=== PATIENT | female | born 2000 | race Caucasian/White ===

== ENCOUNTER 2018-08-25 12:30 | Emergency (ER) | payer OTHER ==
[2018-08-25] MEDS ORDERED: SODIUM CHLORIDE 0.9% 1,000 ML IV STA ×3 (12:33→13:24)
[2018-08-25] MEDS ORDERED: ACETAMINOPHEN IV (For NPO) 1,000 MG in EMPTY BAG 1 BAG IVPB STA (12:33)
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
[2018-08-25 12:54] LABS: Glucose,Whole Blood 99 mg/dL (75-99)
[2018-08-25 12:57] LABS: Basophils # (A) 0.1 k/uL (0-0.2); Basophils % (A) 1 %; Eosinophils # (A) 0.3 k/uL (0-0.7); Eosinophils % (A) 2 %; HCT 44.3 % (34.0-46.0); HGB 14.3 gm/dL (11.4-16.0); Lymphocytes # (A) 2.7 k/uL (1.0-4.8); Lymphocytes % (A) 22 %; MCH 27.1 pg (25.0-35.0); MCHC 32.2 g/dL (31.0-37.0); MCV 84.1 fL (80.0-100.0); Mean Platelet Volume 5.7; Monocytes # (A) 0.3 k/uL (0-1.0); Monocytes % (A) 2 %; Neutrophils # (A) 8.5 k/uL (1.3-7.7); Neutrophils % (A) 71 %; Platelet Count 423 k/uL (150-450); RBC 5.27 m/uL (3.80-5.40)
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
[2018-08-25 13:05] LABS: Prothrombin Time 10.3 sec (9.0-12.0)
[2018-08-25 13:07] LABS: ALT 26 U/L (9-52); AST 21 U/L (14-36); Albumin 4.3 g/dL (3.5-5.0); Alkaline Phosphatase 76 U/L (38-126); Amylase 61 U/L (30-110); Anion Gap 10 mmol/L; Blood Urea Nitrogen 5 mg/dL (7-17); Calcium 9.7 mg/dL (8.4-10.2); Carbon Dioxide 24 mmol/L (22-30); Chloride 109 mmol/L (98-107); Glucose 96 mg/dL (74-99); Lipase 117 U/L (23-300); Potassium 3.5 mmol/L (3.5-5.1); Sodium 143 mmol/L (137-145); Total Bilirubin 0.5 mg/dL (0.2-1.3); Total Protein 7.3 g/dL (6.3-8.2)
[2018-08-25 13:13] LABS: Alcohol 98 mg/dL
[2018-08-25 13:14] LABS: Creatine Kinase 141 U/L (30-135)
[2018-08-25] MEDS ORDERED: DIPH,PERTUS(ACELL)TETVAC-LF 0.5 ML VIAL IM ONE (13:25)
[2018-08-25 13:28] LABS: Creatine Kinase MB 2.1 ng/mL (0.0-2.4); Troponin I <0.012 ng/mL (0.000-0.034)
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
[2018-08-25 13:41] VITALS: BP 112/74; PULSE 86; RESP 22; TEMP 98.4
[2018-08-25 15:04] LABS: Appearance,Urine Clear (Clear); Bacteria,Urine Rare /hpf; Bilirubin,Urine Negative (Negative); Blood,Urine Negative (Negative); Color,Urine Light Yellow; Glucose,Urine (UA) Negative (Negative); Ketones,Urine Negative (Negative); Leukocyte Esterase,Urine Negative (Negative); Nitrite,Urine Negative (Negative); Protein,Urine 1+ (Negative); RBC,Urine <1 /hpf (0-5); Specific Gravity,Urine 1.019 (1.001-1.035); Squamous Epithelial Cell,Urine 3 /hpf (0-4); Urobilinogen,Urine <2.0 mg/dL (<2.0); WBC,Urine 1 /hpf (0-5)
[2018-08-25 15:06] LABS: Amphetamine Screen,Urine Detected (NotDetected); Barbiturate Screen,Urine Not Detected (NotDetected); Benzodiazepines Screen,Urine Not Detected (NotDetected); Cocaine Screen,Urine Not Detected (NotDetected); Methadone Screen, Urine Not Detected (NotDetected); Opiate Screen,Urine Not Detected (NotDetected); Oxycodone Screen, Urine Not Detected (NotDetected); Phencyclidine Screen,Urine Not Detected (NotDetected); Tricyclic Antidepressant,Urine Not Detected (NotDetected); Urn Cannabinoid Scrn Detected (NotDetected)
== END 2018-08-25 15:40 | disposition home or self-care (01) ==
LOC: EC 12:30
DX: M54.2 Cervicalgia (principal); R51 Headache; F17.200 Nicotine dependence, unspecified, uncomplicated; Z23 Encounter for immunization; V48.5XXA Car driver injured in noncollision transport accident in traffic accident, initial encounter; Y93.89 Activity, other specified; Y92.410 Unspecified street and highway as the place of occurrence of the external cause
CPT/HCPCS: 99285; 96374; 96361 ×2; 90471; 36415; 86900; 86901; 80053; 82150; 82550; 82553; 83605; 83690; 84484; 85025; 85610; 85730; 86850; 81001; 81025; 80306; 80320; 72170; 71045; 72125; 70450; 71260; 74177; 90715; J0131; Q9967

== ENCOUNTER → 2018-10-17 | Outpatient (CLI) | payer BC, OTHER ==
--- NOTE | 2018-10-17 08:26 | USB ---
Reason for exam: clinical finding. Indicated problem(s): pain in the right breast. Physical Findings: Nurse did not find any significant physical abnormalities on exam. US Breast RT Right complete breast ultrasound includes all four quadrants, the retroareolar region and axilla. Finding demonstrates a 0.9 x 0.7 x 0.7cm oval axilla node. While this is not enlarged, it is thickened. The cortex is eccentrically thickened up to 5mm. Likely reactive/post inflammatory, 3 month follow up can reassess. No other solid or cystic lesion otherwise seen. Dense tissues in upper outer quadrant. These results were verbally communicated with the patient and result sheet given to the patient on 10/17/18. ASSESSMENT: Probably benign, BI-RAD 3 RECOMMENDATION: Ultrasound of the right breast in 6 months. (thickened axillary node) Manage on a clinical basis with regard to right breast pain.
== END | disposition home or self-care (01) ==
LOC: RADUSWWP 07:10
PROVIDERS: ATTEND Physician Assistant
DX: N64.4 Mastodynia (principal)

== ENCOUNTER 2019-04-08 23:55 | Emergency (ER) | payer BC ==
[2019-04-09] MEDS ORDERED: SULFAMETHOX-TMP 800-160MG 1 EACH TAB PO STA (00:33)
--- NOTE | 2019-04-09 00:40 | ED ---
Skin/Abscess/FB HPI - General Chief complaint: Skin/Abscess/Foreign Body Stated complaint: poss infection, rt leg Time Seen by Provider: 04/09/19 00:08 Source: patient Mode of arrival: ambulatory Limitations: no limitations - History of Present Illness Initial comments: This patient is 19-year-old woman with history of previous abscesses who presents to be evaluated for what she suspects is an abscess to the right pretibial area. The patient states that she had noticed a little redness yesterday and then today noticed that there appeared to be an area that was coming to a head. She states she did estefany into this at home and some pus did drain. Patient was concerned because she has previous history of MRSA infection with the abscesses. She denies any systemic symptoms, including no fever or chills, palpitations, chest pain, dyspnea or diaphoresis or other symptoms. MD complaint: abscess/boil Onset/Timin -: days(s) Tetanus Up to Date: yes Location: RLE Severity: mild Consistency: constant Improves with: none Worsens with: none Associated symptoms: denies other symptoms Treatments Prior to Arrival: attempted to drain pus at home - Related Data Previous Rx's Medication Instructions Recorded Sulfamethox-Tmp 800-160Mg [Bactrim 1 each PO Q12HR #14 tab 04/09/19 Ds] Allergies Allergy/AdvReac Type Severity Reaction Status Date / Time No Known Allergies Allergy Verified 08/25/18 13:39 Review of Systems ROS Statement: Those systems with pertinent positive or pertinent negative responses have been documented in the HPI. ROS Other: All systems not noted in ROS Statement are negative. Constitutional: Denies: fever, chills Respiratory: Denies: dyspnea Cardiovascular: Denies: chest pain, palpitations, edema, syncope Skin: Reports: as per HPI, other (Small pretibial abscess) Past Medical History Past Medical History: No Reported History History of Any Multi-Drug Resistant Organisms: MRSA Date of last positivie culture/infection: 2017 MDRO Source:: thigh Past Surgical History: No Surgical Hx Reported Past Psychological History: Depression Smoking Status: Current every day smoker Past Alcohol Use History: None Reported Past Drug Use History: None Reported General Exam Limitations: no limitations General appearance: alert, in no apparent distress Respiratory exam: Present: normal lung sounds bilaterally. Absent: respiratory distress, wheezes, rales, rhonchi, stridor Cardiovascular Exam: Present: regular rate, normal rhythm Skin exam: Present: warm, dry, normal color, erythema, other (Patient has an approximately 6 cm diameter area of erythema in the right pretibial area. Centrally located is small eschar where the patient had drained small amount of pus. This does appear consistent with drained abscess. There is no fluctuance.) Course Vital Signs 04/08/19 04/09/19 23:56 01:20 Temperature 98.1 F 98.0 F Pulse Rate 81 71 Respiratory 18 16 Rate Blood Pressure 124/74 104/60 O2 Sat by Pulse 100 98 Oximetry Medical Decision Making - Medical Decision Making Patient is 19-year-old woman with an abscess that she drained at home. Will place patient on Bactrim to further treat remaining cellulitis. Discussed warm compresses and appropriate further care and follow-up. Disposition Clinical Impression: Abscess Disposition: HOME SELF-CARE Condition: Good Instructions (If sedation given, give patient instructions): Abscess (ED) Prescriptions: Sulfamethox-Tmp 800-160Mg [Bactrim Ds] 1 each PO Q12HR #14 tab Is patient prescribed a controlled substance at d/c from ED?: No Referrals: Tony Toney MD [Primary Care Provider] - 1-2 days
[2019-04-09 01:20] VITALS: BP 104/60; PULSE 71; RESP 16; TEMP 98
== END 2019-04-09 01:18 | disposition home or self-care (01) ==
LOC: EC 23:55
DX: L02.415 Cutaneous abscess of right lower limb (principal); F17.200 Nicotine dependence, unspecified, uncomplicated; Z86.14 Personal history of Methicillin resistant Staphylococcus aureus infection
CPT/HCPCS: 99283

== ENCOUNTER 2019-04-11 00:04 | Emergency (ER) | payer BC ==
[2019-04-11 00:22] VITALS: BP 116/69; PULSE 75; RESP 18; TEMP 97.9
[2019-04-11] MEDS ORDERED: ONDANSETRON 4 MG ODT STARTER PACK 2 TAB BTL PO STA (00:34)
[2019-04-11] MEDS ORDERED: CEPHALEXIN 500MG STARTER PACK 4 CAP BTL PO STA (00:34)
--- NOTE | 2019-04-11 00:37 | ED ---
Skin/Abscess/FB HPI - General Chief complaint: Skin/Abscess/Foreign Body Stated complaint: Recheck R Leg Infection Time Seen by Provider: 04/11/19 00:24 Source: patient Mode of arrival: ambulatory - History of Present Illness Initial comments: 19-year-old female patient presents to the emergency department today for reevaluation of an infection to her right leg. Patient was seen and evaluated here 2 days ago and diagnosed with abscess. She was started on Bactrim. States that she has taken 5 doses of the Bactrim and today noticed increased swelling and redness to her leg. She denies fever or chills. States that she has felt general malaise and nausea today. Denies any vomiting. Patient does have history of MRSA. She denies any history of diabetes. Denies drug or alcohol use. Patient denies any recent rash, shortness breath, chest pain, abdominal pain, diarrhea, constipation, back pain, numbness, tingling, dizziness, weakness, hematuria, dysuria, urinary urgency, urinary frequency, headache, visual changes, or any other complaints. - Related Data Previous Rx's Medication Instructions Recorded Sulfamethox-Tmp 800-160Mg [Bactrim 1 each PO Q12HR #14 tab 04/09/19 Ds] Cephalexin [Keflex] 500 mg PO Q6HR #40 cap 04/11/19 L.acidoph,Paracasei, B.lactis 1 each PO BID #20 capsule 04/11/19 [Probiotic] Sulfamethoxazole/Trimethoprim 2 each PO BID #40 tablet 04/11/19 [Bactrim DS 800-160 mg] Allergies Allergy/AdvReac Type Severity Reaction Status Date / Time No Known Allergies Allergy Verified 04/11/19 00:22 Review of Systems ROS Statement: Those systems with pertinent positive or pertinent negative responses have been documented in the HPI. ROS Other: All systems not noted in ROS Statement are negative. Past Medical History Past Medical History: No Reported History History of Any Multi-Drug Resistant Organisms: MRSA Date of last positivie culture/infection: 2017 MDRO Source:: thigh Past Surgical History: No Surgical Hx Reported Past Psychological History: Depression Smoking Status: Current every day smoker Past Alcohol Use History: None Reported Past Drug Use History: None Reported General Exam General appearance: alert, in no apparent distress, other (This is a well- developed, well-nourished adult female patient in no acute distress. Vital signs upon presentation are temperature 97.9F, pulse 75, respirations 18, blood pressure 116/69, pulse ox 97% on room air.) Eye exam: Present: normal appearance, PERRL, EOMI. Absent: scleral icterus, conjunctival injection, periorbital swelling ENT exam: Present: normal exam, normal oropharynx, mucous membranes moist Respiratory exam: Present: normal lung sounds bilaterally. Absent: respiratory distress, wheezes, rales, rhonchi, stridor Cardiovascular Exam: Present: regular rate, normal rhythm, normal heart sounds. Absent: systolic murmur, diastolic murmur, rubs, gallop, clicks Extremities exam: Present: full ROM, normal capillary refill, other (Patient has abscess noted to the left mccurdy, this is indurated approximately 1.5 cm, no fluctuance. No current drainage. There is surrounding cellulitis from the knee over the medial leg to the ankle. Mild soft tissue swelling.). Absent: normal inspection, tenderness, pedal edema, joint swelling, calf tenderness Neurological exam: Present: alert, oriented X3, CN II-XII intact Psychiatric exam: Present: normal affect, normal mood Skin exam: Present: warm, dry, intact, normal color. Absent: rash Course Vital Signs 04/11/19 00:17 Temperature 97.9 F Pulse Rate 75 Respiratory 18 Rate Blood Pressure 116/69 O2 Sat by Pulse 97 Oximetry Medical Decision Making - Medical Decision Making 19-year-old female patient presented to the emergency department today for evaluation of infection to the right mccurdy. Physical examination did reveal indurated abscess with surrounding cellulitis. Patient is currently taking Bactrim, she has had 5 doses. We'll double the dose of Bactrim and add Keflex. She is afebrile, vital signs. She is not vomiting. Line was drawn on the area of cellulitis. We'll discharge with prescriptions for antibiotics and for Zofran. She is instructed follow up with her primary care physician for recheck in 1-2 days. Return parameters were discussed in detail. She verbalizes understanding and agrees with this plan. Disposition Clinical Impression: Cellulitis and abscess of right leg Disposition: HOME SELF-CARE Condition: Good Instructions (If sedation given, give patient instructions): Cellulitis (ED), Abscess (ED) Additional Instructions: Complete antibiotic prescription in full. Take probiotic. Follow-up with the primary care physician for recheck in 1-2 days. Return to the emergency depart ment immediately for any new, worsening, or concerning symptoms. Prescriptions: Sulfamethoxazole/Trimethoprim [Bactrim DS 800-160 mg] 2 each PO BID #40 tablet Cephalexin [Keflex] 500 mg PO Q6HR #40 cap L.acidoph,Paracasei, B.lactis [Probiotic] 1 each PO BID #20 capsule Is patient prescribed a controlled substance at d/c from ED?: No Referrals: Tony Toney MD [Primary Care Provider] - 1-2 days Time of Disposition: 00:37
== END 2019-04-11 00:56 | disposition home or self-care (01) ==
LOC: EC 00:04
DX: L03.115 Cellulitis of right lower limb (principal); L02.415 Cutaneous abscess of right lower limb; F17.200 Nicotine dependence, unspecified, uncomplicated; Z86.14 Personal history of Methicillin resistant Staphylococcus aureus infection
CPT/HCPCS: 99283

== ENCOUNTER → 2019-05-01 | Outpatient (CLI) | payer BC ==
--- NOTE | 2019-05-02 09:14 | USB ---
Reason for exam: follow-up at short interval from prior study. Physical Findings: Nurse did not find any significant physical abnormalities on exam. US Breast RT Right complete breast ultrasound includes all four quadrants, the retroareolar region and axilla. Finding demonstrates dense breast tissue throughout. Previously seen lymph node is no longer seen. These results were verbally communicated with the patient and result sheet given to the patient on 05/01/19. ASSESSMENT: Negative, BI-RAD 1 RECOMMENDATION: Surgical consultation of the right breast. Manage patient on a clinical basis. Surgical consultation for chronic pain. Called Dr. Toney's office with mammographic findings and has scheduled an appointment for the patient for 05/03/19 at 8:20 with Lucian Banks. PRELIMINARY REPORT CALLED AND FAXED TO DR. TONEY ON 05/02/19.
--- NOTE | 2019-05-02 09:16 | MM ---
Reason for exam: clinical finding. Baseline mammogram. Physical Findings: Nurse did not find any significant physical abnormalities on exam. [facility] Diagnostic Mammo w CAD MERLE Bilateral CC and MLO view(s) were taken. The breast tissue is heterogeneously dense. This may lower the sensitivity of mammography. Asymmetric size of the breasts with the appearance of a large approximately 12.6cm Hamartoma (breast within a breast appearance). These results were verbally communicated with the patient and result sheet given to the patient on 05/01/19. ASSESSMENT: Benign, BI-RAD 2 RECOMMENDATION: Surgical consultation of both breasts. Manage patient on a clinical basis. Surgical consultation for chronic pain. Called Dr. Toney's office with mammographic findings and has scheduled an appointment for the patient for 05/03/19 at 8:20 with Lucian Banks. PRELIMINARY REPORT CALLED AND FAXED TO DR. TONEY ON 05/02/19.
== END | disposition home or self-care (01) ==
LOC: RADMAMWWP 11:10
PROVIDERS: ATTEND Family Medicine
DX: N64.4 Mastodynia (principal)
CPT/HCPCS: 77066

== ENCOUNTER → 2019-08-16 | Outpatient (CLI) | payer BC ==
[2019-08-16 10:46] VITALS: BP 118/74; PULSE 64; RESP 14; TEMP 97.8
--- NOTE | 2019-08-16 11:17 | P.GSHP ---
History of Present Illness H&P Date: 08/16/19 Chief Complaint: lump in her right breast Amada is a 19 year old white female seen in consultation for Dr. Tony Toney who states that over the past year she noted a lump increasing in size in her right breast. She states that it is tender at the time of her period but only with pressure applied at this site. She is not complaining of any abnormal nipple discharge or skin changes. She doesn't have any history of recent trauma or infection in the breast. She states that the discomfort is like a traction pulling related to the size of the lesion. 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 The patient was followed as a child 3 years at [facility] secondary to right breast nipple discharge which was yellow/clear in nature. When she started her menstrual periods for discharge stopped. No reason for the discharge was identified. The patient has not been seen by them for 10 years. Additionally she had an ultrasound of the right breast and this was negative BIRADS 1. The patient initially had sought of recommendation in October 2018 an ultrasound of the right breast at that time revealed a 0.9 cm axillary node. The plan was for follow-up in 6 months and she had repeat ultrasound done in April 2019. No radiographic studies have been done of the left breast. Caffeine: 1 cup of coffee per day Nicotine: One pack of cigarettes per day for 7 years Chocolate: Daily no hormone suppliments Family History: father: lymphoma paternal aunt: lymphoma paternal grandfather: colon cancer maternal grandfather: pancreatic cancer Hormonal History: menarche: 12 G0 periods regular BCP: none hormones: none Surgical history: Negative Medical history: asthma MRSA in thigh and calf on the right Social History: smoke: 1/PPD alcohol: none drugs: Marijuana daily - Constitutional Constitutional: Denies chills, Denies fever - EENT Eyes: denies blurred vision, denies pain Ears: deny: decreased hearing, tinnitus Ears, nose, mouth and throat: Denies headache, Denies sore throat - Breasts Breasts: bilateral: as per HPI - Cardiovascular Cardiovascular: Denies chest pain, Denies shortness of breath - Respiratory Comment: asthma Respiratory: Denies cough, Denies 7 - Gastrointestinal Gastrointestinal: Denies abdominal pain, Denies diarrhea, Denies nausea, Denies vomiting - Menstruation Menstruation: Reports period normal - Musculoskeletal Comment: carpal tunnel Musculoskeletal: Denies myalgias - Integumentary Integumentary: Denies pruritus, Denies rash - Neurological Neurological: Reports numbness, Reports weakness - Psychiatric Psychiatric: Reports anxiety, Reports depression - Endocrine Endocrine: Denies fatigue, Denies weight change - Hematologic/Lymphatic Comment: none - Allergic/Immunologic Allergic/Immunologic: Reports as per HPI Past Medical History Past Medical History: Asthma History of Any Multi-Drug Resistant Organisms: MRSA Date of last positivie culture/infection: 2017 MDRO Source:: thigh Past Surgical History: No Surgical Hx Reported Past Anesthesia/Blood Transfusion Reactions: No Reported Reaction Past Psychological History: Depression Smoking Status: Current every day smoker Past Alcohol Use History: None Reported Additional Past Alcohol Use History / Comment(s): started smoking at the age of 12, 1ppd Past Drug Use History: None Reported Medications and Allergies Home Medications Medication Instructions Recorded Confirmed Type hydrOXYzine PAMOATE [Vistaril] 50 mg PO HS 08/16/19 08/16/19 History Allergies Allergy/AdvReac Type Severity Reaction Status Date / Time No Known Allergies Allergy Verified 08/16/19 10:41 Surgical - Exam Vital Signs Temp Pulse Resp BP Pulse Ox 97.8 F 64 14 118/74 100 08/16/19 10:43 08/16/19 10:43 08/16/19 10:43 08/16/19 10:43 08/16/19 10:43 BMI 28.7 - General well developed, well nourished, no distress - Eyes normal ocular movement - ENT no hearing loss, no congestion - Neck no masses, trachea midline - Respiratory normal respiratory effort, clear to auscultation - Cardiovascular Rhythm: regular Heart Sounds: normal: S1, S2 - Abdomen Abdomen: soft, non tender, no guarding, no rigid, no rebound - Integumentary normal turgor - Neurologic no disoriented, no combative - Musculoskeletal normal gait, normal posture - Psychiatric oriented to time, oriented to person, oriented to place, speech is normal, memory intact breast exam: BRA 38 DDD right 38 B left Inspection: Right breast considerably larger than the left breast, there is the impression of a fullness in the upper outer quadrant region, no nipple inversion Palpation: Right breast: Fullness upper-outer quadrant area this is also seen within the patient elevates her breast as a fullness separate from the breast tissue but not very discrete Right axilla: No adenopathy of concern Left breast: Multiple positional exam fibrocystic changes, node definite masses or nodules of concern Left axilla: No adenopathy of concern Results right breast mammogram and ultrasound reviewed with radiologist Assessment and Plan Assessment: Impression: 1. Mass right breast upper outer quadrant region 2. Abnormal right breast mammogram 3. Prior history of right breast nipple discharge which is stopped 4. Family history of cancer 5. Former history of asthma Plan: 1. core biopsy in the office of palpable change, if nondiagnositc stero biopsy of the right breast to confirm diagnosis of hamartoma 2. We have discussed possibility of resection as the fullness of this is causing traction on the breast and discomfort for the patient would like to get a tissue diagnosis prior to this. We have discussed the options and the patient has been given the optin of being seen at a tertiary care center/[facility]. The patient is not interested in going to [facility] or another place at this time we will proceed with workup here. encounter: 40 minutes, > 50% of time in planning and counselling Time with Patient: Greater than 30
== END ==
LOC: WWCWWP 10:33
PROVIDERS: ATTEND Surgery
DX: Z53.9 Procedure and treatment not carried out, unspecified reason (principal)

== ENCOUNTER → 2019-11-01 | Outpatient (CLI) | payer BC ==
[2019-11-01 09:31] VITALS: BP 107/71; PULSE 76; RESP 18; TEMP 98.2
--- NOTE | 2019-11-01 09:44 | P.PCN ---
Date of Procedure: 11/01/19 Preoperative Diagnosis: Fullness right breast upper outer quadrant region/probable hamartoma Postoperative Diagnosis: Same Procedure(s) Performed: Core biopsy mass right breast Anesthesia: local Surgeon: Chela Page Pathology: other (breast tissue) Condition: stable Disposition: same day Indications for Procedure: Mass right breast upper outer quadrant Operative Findings: Dense breast tissue Description of Procedure: The patient is a 19-year-old white female who has had mass which is in the upper outer quadrant of the right breast which is increased in size over the past 6 months to a year. Radiographic evaluation is consistent with a hamartoma. The patient is also complaining of some clear nipple discharge on the right side. She had this as a young child which stopped when her periods started in the just started again recently. The patient is uncertain as to whether the mass in the right breast is increased in size recently. Risks and benefits of core biopsy were discussed with the patient. She understands and wishes to proceed. She also understands if diagnosis is not made and a proceed to an ultrasound-guided core biopsy. The area of concern is prepped using Betadine. 1% lidocaine was used to anesthetize the area of concern. A small bryce is made in the skin. An 18-gauge Bard core biopsy needle was used to obtain 3 core samples. Specimens are sent to pathology. The patient tolerated the procedure in stable condition. She will follow up next week for results of the pathology.
== END | disposition home or self-care (01) ==
LOC: WWCWWP 09:07
PROVIDERS: ATTEND Surgery
DX: N63.11 Unspecified lump in the right breast, upper outer quadrant (principal)
CPT/HCPCS: 88305

== ENCOUNTER → 2019-11-08 | Outpatient (CLI) | payer BC ==
[2019-11-08 11:07] VITALS: BP 109/72; PULSE 79; RESP 16; TEMP 98.3
--- NOTE | 2019-11-08 11:35 | P.PN ---
Subjective Progress Note Date: 11/08/19 Principal diagnosis: hamartoma of the right breast Amada is a 19 year old white female seen in consultation for Dr. Tony Toney on 08-16-19, who stated that over the past year she noted a lump increasing in size in her right breast. She stated that it was tender at the time of her period but only with pressure applied at this site. She was not complaining of any abnormal nipple discharge or skin changes. She did not have any history of recent trauma or infection in the breast. She stated that the discomfort was like a traction pulling related to the size of the lesion. 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 The patient was followed as a child 3 years at [facility] secondary to right breast nipple discharge which was yellow/clear in nature. When she started her menstrual periods for discharge stopped. No reason for the discharge was identified. The patient has not been seen by them for 10 years. Additionally she had an ultrasound of the right breast and this was negative BIRADS 1. The patient initially had sought of recommendation in October 2018 an ultrasound of the right breast at that time revealed a 0.9 cm axillary node. The plan was for follow-up in 6 months and she had repeat ultrasound done in April 2019. A bilateral mammogram was performed in April 2019 revealing asymmetric size of the breast with a large 12.6 cm hamartoma in the right breast. A core biopsy of the right breast at 10:00 performed on revealed benign breast and fibroadipose tissue with focal fibrosis. She has not had a repeat right axillary ultrasound to follow an enlarged node which was seen in October 2018 done at this time. Caffeine: 1 cup of coffee per day Nicotine: One pack of cigarettes per day for 7 years Chocolate: Daily no hormone suppliments Family History: father: lymphoma paternal aunt: lymphoma paternal grandfather: colon cancer maternal grandfather: pancreatic cancer Hormonal History: menarche: 12 G0 periods regular BCP: none hormones: none Surgical history: Negative Medical history: asthma MRSA in thigh and calf on the right Social History: smoke: 1/PPD alcohol: none drugs: Marijuana daily - Constitutional Constitutional: Denies chills, Denies fever - EENT Eyes: denies blurred vision, denies pain Ears: deny: decreased hearing, tinnitus Ears, nose, mouth and throat: Denies headache, Denies sore throat - Breasts Breasts: bilateral: as per HPI - Cardiovascular Cardiovascular: Denies chest pain, Denies shortness of breath - Respiratory Comment: asthma Respiratory: Denies cough - Gastrointestinal Gastrointestinal: Denies abdominal pain, Denies diarrhea, Denies nausea, Denies vomiting - Menstruation Menstruation: Reports period normal - Musculoskeletal Comment: carpal tunnel Musculoskeletal: Denies myalgias - Integumentary Integumentary: Denies pruritus, Denies rash - Neurological Neurological: Reports numbness, Reports weakness - Psychiatric Psychiatric: Reports anxiety, Reports depression - Endocrine Endocrine: Denies fatigue, Denies weight change - Hematologic/Lymphatic Comment: none - Allergic/Immunologic Allergic/Immunologic: Reports as per HPI Past Medical History Past Medical History: Asthma History of Any Multi-Drug Resistant Organisms: MRSA Date of last positivie culture/infection: 2017 MDRO Source:: thigh Past Surgical History: No Surgical Hx Reported Past Anesthesia/Blood Transfusion Reactions: No Reported Reaction Past Psychological History: Depression Smoking Status: Current every day smoker Past Alcohol Use History: None Reported Additional Past Alcohol Use History / Comment(s): started smoking at the age of 12, 1ppd Past Drug Use History: None Reported Medications and Allergies Home Medications Medication Instructions Recorded Confirmed Type hydrOXYzine PAMOATE [Vistaril] 50 mg PO HS 08/16/19 08/16/19 History Allergies Allergy/AdvReac Type Severity Reaction Status Date / Time No Known Allergies Allergy Verified 08/16/19 10:41 Objective - Vital Signs Vital signs: Intake & Output 11/07/19 11/08/19 11/08/19 18:59 06:59 18:59 Weight 81.647 kg - Exam BMI 30.9 - Constitutional General appearance: Present: cooperative - EENT Eyes: Present: EOMI ENT: Present: hearing grossly normal - Respiratory Details: Inspiratory wheezing bilaterally Respiratory: bilateral: CTA - Cardiovascular Rhythm: regular Heart sounds: normal: S1, S2 - Gastrointestinal General gastrointestinal: Present: soft - Integumentary Integumentary Comment(s): tattoos left wrist, right rib, right arm, left thigh, right calf, right foot - Musculoskeletal Musculoskeletal: Present: gait normal - Psychiatric Psychiatric: Present: A&O x's 3, appropriate affect, intact judgment & insight - Additional findings Additional findings: Breast examination: Breast size Right breast: 38 DD Left breast: 38 B Inspection: Right breast ptosis grade 3, left breast ptosis grade 2 Palpation: Right breast: Multi-positional exam some increased fullness in the upper outer quadrant area in the region of the hematoma, the patient has a mild ecchymosis related to biopsy no dominant masses or nodules otherwise of concern Right axilla: No adenopathy of concern {: Multiple positional exam fibrocystic changes Left axilla: No adenopathy of concern Assessment and Plan Assessment: Impression: 1. Right breast probable hamartoma 2. Asymmetry of breast 3. Fibrocystic breast changes 4. Right shoulder pain 5. back pain related to right breast milvia Plan: 1. Excision of hamartoma via reduction mastopexy incision 2. Appointment with plastic surgery 3. Medical clearance Skin benefits of the procedure have been discussed with the patient. She understands that the lesion in the right breast is not felt to be a cancer or precancer, however it has increased in size and is causing the patient discomfort and concern secondary to the marked asymmetry in size of the breast. The patient would like to have the lesion which is believed to be a hamartoma removed. Reduction mammoplasty incision. This would not only remove the lesion of concern but also decrease the asymmetry between the breasts. We have discussed plastic surgical consultation and she is going to have this set up. She understands risks include but are not limited to bleeding, infection, reaction to the anesthetic. She also understands she may have decreased sensation to the nipple areolar complex and there is a risk of loss of the complex. No admission wishes to proceed. CC: Maddy Toney encounter 35 minutes, > 50% of time in planning and counseling
== END | disposition home or self-care (01) ==
LOC: WWCWWP 10:55
PROVIDERS: ATTEND Surgery
DX: Z53.9 Procedure and treatment not carried out, unspecified reason (principal)

== ENCOUNTER 2019-12-23 20:46 | Emergency (ER) | payer BC ==
[2019-12-23 21:01] VITALS: BP 134/98; PULSE 98; RESP 20; TEMP 99.1
[2019-12-24 00:04] LABS: Amphetamine Screen,Urine Not Detected (NotDetected); Barbiturate Screen,Urine Not Detected (NotDetected); Benzodiazepines Screen,Urine Not Detected (NotDetected); Cocaine Screen,Urine Not Detected (NotDetected); Methadone Screen, Urine Not Detected (NotDetected); Opiate Screen,Urine Not Detected (NotDetected); Oxycodone Screen, Urine Not Detected (NotDetected); Phencyclidine Screen,Urine Not Detected (NotDetected); Tricyclic Antidepressant,Urine Not Detected (NotDetected); Urn Cannabinoid Scrn Detected (NotDetected)
--- NOTE | 2019-12-24 00:16 | ED ---
Psych HPI - General Source: patient Mode of arrival: ambulatory <Linda Cleveland - Last Filed: 12/24/19 00:15> - General Source: RN notes reviewed, old records reviewed <Alvarado Ventura - Last Filed: 12/24/19 01:19> - General Chief Complaint: Psychiatric Symptoms Stated Complaint: Mental health Time Seen by Provider: 12/23/19 21:04 - History of Present Illness Initial Comments: 19-year-old male patient passed no history of anxiety procedure for evaluation request med reviewed. Reports that she is. Follow-up with her psychiatrist today and over the had disagreement she was unable to follow up. She denies any suicidal or homicidal ideations. Denies any acute physical complaints. Systemic: Pt denies fatigue, fever/chills, rash. Pt denies weakness, night sweats, weight loss. Neuro: Pt denies headache, visual disturbances, syncope or pre-syncope. HEENT: Pt denies ocular discharge or irritation, otalgia, rhinorrhea, pharyngitis or notable lymphadenopathy. Cardiopulmonary: Pt denies chest pain, SOB, heart palpitations, dyspnea on exertion. Abdominal/GI: Pt denies abdominal pain, n/v/d. : Pt denies dysuria, burning w/ urination, frequency/urgency. Denies new onset urinary or bowel incontinence. MSK: Pt denies myalgia, loss of strength or function in extremities. Neuro: Pt denies new onset weakness, paresthesias. (Alvarado Ventura) - Related Data Home Medications Medication Instructions Recorded Confirmed hydrOXYzine PAMOATE [Vistaril] 100 mg PO HS 12/23/19 12/23/19 Allergies Allergy/AdvReac Type Severity Reaction Status Date / Time No Known Allergies Allergy Verified 12/23/19 22:04 Review of Systems ROS Other: All systems not noted in ROS Statement are negative. <Linda Cleveland - Last Filed: 12/24/19 00:15> ROS Other: All systems not noted in ROS Statement are negative. <Alvarado Ventura - Last Filed: 12/24/19 01:19> ROS Statement: Those systems with pertinent positive or pertinent negative responses have been documented in the HPI. Past Medical History Past Medical History: Asthma History of Any Multi-Drug Resistant Organisms: MRSA Date of last positivie culture/infection: 2018 MDRO Source:: thigh Past Surgical History: No Surgical Hx Reported Additional Past Surgical History / Comment(s): benign right breast biopsy 11/01/19; Past Anesthesia/Blood Transfusion Reactions: No Reported Reaction Past Psychological History: Depression Past Drug Use History: None Reported <Linda Cleveland - Last Filed: 12/24/19 00:15> General Exam <Alvarado Ventura - Last Filed: 12/24/19 01:19> - General Exam Comments Initial Comments: Constitutional: NAD, AOX3, Pt has pleasant affect. HEENT: NC/AT, trachea midline, neck supple, no lymphadenopathy. External ears appear normal, without discharge. Mucous membranes moist. EOM intact. There is no scleral icterus. No pallor noted. Cardiopulmonary: RRR, no murmurs, rubs or gallops, no JVD noted. Lungs CTAB in anterior and posterior bermudez. No peripheral edema. Abdominal exam: Abdomen soft and non-distended. Abdomen non-tender to palpation in all 4 quadrants.No hepatosplenomegaly. Neuro: CN II-XII grossly intact. No nuchal rigidity. No raccon eyes, no carpenter sign MSK: Full active ROM in upper and lower extremities (Alvarado Ventura) Course Vital Signs 12/23/19 20:53 Temperature 99.1 F Pulse Rate 98 Respiratory 20 Rate Blood Pressure 134/98 O2 Sat by Pulse 97 Oximetry Medical Decision Making <Alvarado Ventura - Last Filed: 12/24/19 01:19> - Medical Decision Making 19-year-old female patient presents today for evaluation requesting medication review for psychiatric medications. Patient will signs are stable, afebrile. Patient takes Vistaril. Patient denies any suicidal or homicidal ideations. Without by emergency psychiatric services. For discharge. Outpatient follow- up. Case discussed with Dr. Cleveland. (Alvarado Ventura) - Lab Data Lab Results 12/23/19 12/23/19 Range/Units 23:25 23:25 Urine HCG, Qual Not Detected (Not Detectd) Urine Opiates Screen Not Detected (NotDetected) Ur Oxycodone Screen Not Detected (NotDetected) Urine Methadone Screen Not Detected (NotDetected) Ur Propoxyphene Screen Not Detected (NotDetected) Ur Barbiturates Screen Not Detected (NotDetected) U Tricyclic Antidepress Not Detected (NotDetected) Ur Phencyclidine Scrn Not Detected (NotDetected) Ur Amphetamines Screen Not Detected (NotDetected) U Methamphetamines Scrn Not Detected (NotDetected) U Benzodiazepines Scrn Not Detected (NotDetected) Urine Cocaine Screen Not Detected (NotDetected) U Marijuana (THC) Screen Detected H (NotDetected) Disposition Is patient prescribed a controlled substance at d/c from ED?: No <Linda Cleveland - Last Filed: 12/24/19 00:15> Is patient prescribed a controlled substance at d/c from ED?: No <Alvarado Ventura - Last Filed: 12/24/19 01:19> Clinical Impression: Medication care plan discussed with patient Disposition: HOME SELF-CARE Condition: Stable Additional Instructions: Follow up out patient for medication refill Return to the ER for any emergencies or concerns Referrals: Tony Toney MD [Primary Care Provider] - 1-2 days
== END 2019-12-24 00:35 | disposition home or self-care (01) ==
LOC: EC 20:46
DX: Z71.89 Other specified counseling (principal); Z76.89 Persons encountering health services in other specified circumstances; F41.9 Anxiety disorder, unspecified; F17.200 Nicotine dependence, unspecified, uncomplicated; Z79.899 Other long term (current) drug therapy
CPT/HCPCS: 80306; 81025; 82075; 99283

== ENCOUNTER → 2020-02-13 | Outpatient (CLI) | payer BC ==
[2020-02-13 14:33] VITALS: BP 112/72; PULSE 79; RESP 16; TEMP 98.4
--- NOTE | 2020-02-13 15:12 | P.PN ---
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 Tony Toney on 08-16-19, who stated that over the past year and half, she noted a lump increasing in size in her right breast. She stated that it was tender at the time of her period but only with pressure applied at this site. She was not complaining of any abnormal nipple discharge or skin changes. She did not have any history of recent trauma or infection in the breast. She stated that the discomfort was like a traction pulling related to the size of the lesion. 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 The patient was followed as a child for 3 years at [facility] secondary to right breast nipple discharge which was yellow/clear in nature. When she started her menstrual periods the discharge stopped. No reason for the discharge was identified. The patient has not been seen by them for 10 years. Additionally she had an ultrasound of the right breast and this was negative BIRADS 1. The patient initially had sought of recommendation in October 2018 an ultrasound of the right breast at that time revealed a 0.9 cm axillary node. The plan was for follow-up in 6 months and she had repeat ultrasound done in April 2019. A bilateral mammogram was performed in April 2019 revealing asymmetric size of the breast with a large 12.6 cm hamartoma in the right breast. A core biopsy of the right breast at 10:00 performed on revealed benign breast and fibroadipose tissue with focal fibrosis. She has not had a repeat right axillary ultrasound to follow an enlarged node which was seen in October 2018 done at this time. It has been 9 months since her last mammogram we will therefore repeat right breast mammogram and right axillary ultrasound to follow the possible enlarged lymph node which had been seen in October 2018. The patient herself has not noted any changes in her breast recently. She states her right breast is larger than her left breast. The patient began having repeat right nipple discharge only with pressure. The color is clear. This happens only once every few weeks. The patient has seen DR. Chaudhary and was told he will plan to do an implant if necessary and possible breast lift. He is not planning to do anything with the left breast. Caffeine: 1 cup of coffee per day Nicotine: One pack of cigarettes per day for 7 years Chocolate: Daily no hormone suppliments Family History: father: lymphoma paternal aunt: lymphoma paternal grandfather: colon cancer maternal grandfather: pancreatic cancer Hormonal History: menarche: 12 G0 periods regular BCP: none hormones: none Surgical history: Negative Medical history: asthma MRSA in thigh and calf on the right Social History: smoke: 1/PPweek alcohol: none drugs: Marijuana daily - Constitutional Constitutional: Denies chills, Denies fever - EENT Eyes: denies blurred vision, denies pain Ears: deny: decreased hearing, tinnitus Ears, nose, mouth and throat: Denies headache, Denies sore throat - Breasts Breasts: bilateral: as per HPI - Cardiovascular Cardiovascular: Denies chest pain, Denies shortness of breath - Respiratory Comment: asthma Respiratory: Denies cough - Gastrointestinal Gastrointestinal: Denies abdominal pain, Denies diarrhea, Denies nausea, Denies vomiting - Menstruation Menstruation: Reports period normal - Musculoskeletal Comment: carpal tunnel Musculoskeletal: Denies myalgias - Integumentary Integumentary: Denies pruritus, Denies rash - Neurological Neurological: Reports numbness, Reports weakness - Psychiatric Psychiatric: Reports anxiety, Reports depression - Endocrine Endocrine: Denies fatigue, Denies weight change - Hematologic/Lymphatic Comment: none Objective - Vital Signs Vital signs: Vital Signs Temp 98.4 F 02/13/20 14:28 Pulse 79 02/13/20 14:28 Resp 16 02/13/20 14:28 BP 112/72 02/13/20 14:28 Pulse Ox 97 02/13/20 14:28 Intake & Output 02/12/20 02/13/20 02/13/20 18:59 06:59 18:59 Weight 74.843 kg - Exam BMI 28.3 - Constitutional General appearance: Present: cooperative - EENT Eyes: Present: EOMI ENT: Present: hearing grossly normal - Neck Neck: Present: normal ROM - Respiratory Respiratory: bilateral: CTA - Cardiovascular Rhythm: regular Heart sounds: normal: S1, S2 - Gastrointestinal General gastrointestinal: Present: normal bowel sounds, soft - Integumentary Integumentary: Present: normal turgor - Musculoskeletal Musculoskeletal: Present: gait normal - Psychiatric Psychiatric: Present: A&O x's 3, appropriate affect, intact judgment & insight - Additional findings Additional findings: Breast exam: BRA: 38 DD inspection: Right breast larger than left breast, right breast grade 3 ptosis left breast grade 2 ptosis Palpation: Right breast: Approximately 12 x 7 cm mass upper quadrant right breast consistent with hamartoma, fibrocystic changes, no dominant masses or nodules of concern otherwise Right axilla: No adenopathy of concern left breast: Multi-positional exam no dominant masses or nodules of concern; no spontaneous right nipple discharge today Left axilla: No adenopathy of concern Assessment and Plan Assessment: Impression: 1. hamartoma right breast causing asymmetry 2. Right breast nipple discharge non-spontaneous/not reproducible today Plan: 1. Patient has been seen by plastic surgery and wishes the area of hamartoma to be removed; this will be bracketed by radiology prior to removal 2. Plastic surgery to be present at the time of removal for possible implant and breast left 3. Patient understands risks and benefits and wishes to proceed Risks and benefits of the procedure discussed with the patient. These include bleeding infection reaction to the anesthetic. Additionally the patient unders tands there will be asymmetry of the breast and she wishes to proceed. She has been given the option of being seen in the [place] area and wishes to stay here. Cc: Dr. Tony Toney encounter 40 minutes, > 50% of time in planning and counselling
== END | disposition home or self-care (01) ==
LOC: WWCWWP 14:00
PROVIDERS: ATTEND Surgery
DX: Z53.9 Procedure and treatment not carried out, unspecified reason (principal)

== ENCOUNTER → 2020-02-19 | Outpatient (CLI) | payer BC ==
--- NOTE | 2020-02-19 15:00 | MM ---
Reason for exam: additional evaluation requested from prior study. Last mammogram was performed 10 months ago. History: Patient is nulliparous. Physical Findings: Breast exam performed by Dr. Page. MG Diagnostic Mammo RT w CAD CC and MLO view(s) were taken of the right breast. Prior study comparison: May 01, 2019, bilateral MG diagnostic mammo w CAD MERLE. The breast tissue is heterogeneously dense. This may lower the sensitivity of mammography. Potential underlying hamartoma is not as well delineated as on 05/01/19. No significant new findings when compared with previous films. These results were verbally communicated with the patient and result sheet given to the patient on 02/19/20. ASSESSMENT: Benign, BI-RAD 2 RECOMMENDATION: Surgical consultation of the right breast. (for potential underling symptomatic hamartoma) Continue current surgical management.
== END | disposition home or self-care (01) ==
LOC: RADMAMWWP 13:52
PROVIDERS: ATTEND Surgery
DX: R92.8 Other abnormal and inconclusive findings on diagnostic imaging of breast (principal)
CPT/HCPCS: 77065

== ENCOUNTER 2020-03-03 17:25 | Observation (INO) | payer BC ==
[~2020-03-03 17:25] MED LIST changes: -DEXAMETHASONE SOD PHOSPHATE 10 MG/ML 1 ML VIAL IV ONE; -FAMOTIDINE 20 MG/2 ML VIAL IVP ONE; -GLYCOPYRROLATE 0.2 MG/ML 2 ML VIAL ONE; -HEPARIN SODIUM,PORCINE 5,000 UNIT/ML 1 ML VIAL SQ ONE; -HYDROcodone/APAP 5-325MG 1 EACH TAB PO PRN; -HYDROmorphone 0.5 MG/0.5 ML SYRINGE IVP PRN; -KETOROLAC 15 MG/ML 1 ML VIAL IVP ONE; -LACTATED RINGERS 1,000 ML IV SCH; -LIDOCAINE (PF) 10 MG/ML 2 ML VIAL SQ ONE; -LIDOCAINE 1% (10MG/ML) FOR IV START INTRADERMA ONE; -LIDOCAINE 1% (10MG/ML) FOR IV START INTRADERMA PRN; -LIDOCAINE 1% INJ 10MG/ML (20 ML MDV) ONE; -METOCLOPRAMIDE 5 MG/ML 2 ML VIAL IVP ONE; -METOCLOPRAMIDE 5 MG/ML 2 ML VIAL ONE; -MIDAZOLAM 2 MG/2 ML VIAL IV PRN; -MIDAZOLAM 2 MG/2 ML VIAL ONE; -NALOXONE 0.4 MG/ML 1 ML VIAL IV PRN; -ONDANSETRON 4 MG/2 ML VIAL IVP ONE; -PROPOFOL 10 MG/ML 20 ML VIAL IV ONE; -Pre Op ABX Message 1 EACH MISC MISCELLANE ONE; -SODIUM CHLORIDE 0.45% 1,000 ML IV SCH; -SUCCINYLCHOLINE CHLORIDE 100 MG/5 ML SYR IV ONE; -fentaNYL (PF) 50 MCG/ML 2 ML AMP ONE
[2020-03-03] MEDS ORDERED: NALOXONE 0.4 MG/ML 1 ML VIAL IV PRN ×2 (17:28→20:38)
[2020-03-03] MEDS ORDERED: SODIUM CHLORIDE 0.9% 1,000 ML IV ONE ×2 (17:37→19:00)
[2020-03-03] MEDS ORDERED: HYDROmorphone 0.5 MG/0.5 ML SYRINGE IVP STA (18:17)
[2020-03-03 18:20] LABS: Basophils # (A) 0.1 k/uL (0-0.2); Basophils % (A) 0 %; Eosinophils # (A) 0.3 k/uL (0-0.7); Eosinophils % (A) 2 %; HCT 41.3 % (34.0-46.0); HGB 13.1 gm/dL (11.4-16.0); Lymphocytes # (A) 0.6 k/uL (1.0-4.8); Lymphocytes % (A) 3 %; MCH 27.2 pg (25.0-35.0); MCHC 31.8 g/dL (31.0-37.0); MCV 85.6 fL (80.0-100.0); Mean Platelet Volume 6.5; Monocytes # (A) 0.4 k/uL (0-1.0); Monocytes % (A) 2 %; Neutrophils # (A) 18.1 k/uL (1.3-7.7); Neutrophils % (A) 93 %; Platelet Count 283 k/uL (150-450); RBC 4.83 m/uL (3.80-5.40); RDW 13.4 % (11.5-15.5); WBC 19.5 k/uL (3.8-10.6)
--- NOTE | 2020-03-03 18:34 | P.PN ---
Progress Note - Text Progress Note Date: 03/03/20 The patient was admitted to the pediatric floor for observation secondary to postoperative bleeding in the right breast. A CBC was done and the Hgb was 13.1, and WBC 19.5. She was noted to have an increase in size of the breast as well as red blood from the inferior aspect of the incision. She was seen and evaluated and appears that she has an expanding hematoma in the right breast. I have discussed this with Dr. Mari and she is going to have operative evacuation of the hematoma. She and her mother understand and wish to proceed.
[2020-03-03] MEDS: SODIUM CHLORIDE 0.45% 1,000 ML IV SCH ×2 (18:47→22:04)
[2020-03-03] MEDS ORDERED: fentaNYL (PF) 50 MCG/ML 2 ML AMP IV ONE (19:10)
[2020-03-03] MEDS ORDERED: SUCCINYLCHOLINE CHLORIDE 100 MG/5 ML SYR IV ONE (19:37)
[2020-03-03] MEDS ORDERED: ONDANSETRON 4 MG/2 ML VIAL ONE (19:37)
[2020-03-03] MEDS ORDERED: fentaNYL (PF) 50 MCG/ML 2 ML AMP ONE (19:37)
[2020-03-03] MEDS ORDERED: MIDAZOLAM 2 MG/2 ML VIAL ONE (19:37)
[2020-03-03] MEDS ORDERED: PROPOFOL 10 MG/ML 20 ML VIAL IV ONE (19:37)
[2020-03-03] MEDS ORDERED: SODIUM CHLORIDE 0.9% 50 ML with ceFAZolin 2,000 MG IV ONE ×2 (20:00)
[2020-03-03] MEDS ORDERED: HYDROmorphone 1 MG/ML 1 ML SYRINGE IVP PRN (20:38)
[2020-03-03] MEDS ORDERED: ONDANSETRON 4 MG/2 ML VIAL IVP PRN (20:38)
[2020-03-03] MEDS ORDERED: OXcarbazepine 150 MG TAB PO SCH (21:00)
[2020-03-03] MEDS: HEPARIN SODIUM,PORCINE 5,000 UNIT/ML 1 ML VIAL SQ SCH (21:40)
[2020-03-03] MEDS: DEXTROSE 5%-0.45% NACL 1,000 ML IV SCH (21:40)
--- NOTE | 2020-03-03 21:43 | OP ---
OPERATIVE REPORT DATE OF PROCEDURE: March 03, 2020. SURGEON: Dr. Mike Jorge. ASSISTANCE SURGEON: Dr. Page. PREOPERATIVE DIAGNOSIS: Postoperative hematoma, right breast. POSTOPERATIVE DIAGNOSIS: Postoperative hematoma, right breast. OPERATIVE PROCEDURE: Exploration right breast with evacuation of hematoma, irrigation and re-closure. 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 The patient's initial postoperative course appeared normal and she was discharged from recovery room. After the patient was home for some time, she noticed a bright red bloody staining on her bra. It was moist and dripping. She presented to the emergency room at approximately of 4:[address] Page was available and saw the patient and held pressure to the area. There was no bruising at that time and no mass had formed. The patient was observed and planned 23 hour observation was set up. The patient was observed by the nursing staff to have color changes with ecchymoses and increased swelling noted on the right breast. I discussed with Dr. Page and the patient was scheduled for emergent exploration. The patient was met preoperatively in the holding area and the procedure reviewed. She does understand the potential risks and complications of the surgery and has requested I proceed with the operation. OPERATIVE PROCEDURE SUMMARY: The patient was transferred to the operating room where she was placed in supine position. Following induction of general tracheal anesthesia, the patient is prepped and draped in usual fashion. The right breast lateral transverse closure suture in the vertical midline simple running Prolene sutures were removed and then the underlying 4- 0 Monocryl sutures removed opening the lateral aspect of the breast, which was area of greatest ecchymotic changes, clotted and liquid blood was removed measuring 200 mL. The cavity was packed and a power irrigation was now used to gently irrigate the tissue surfaces while looking for bleeding. Along the parenchymal distal pedicle area just inferior to the nipple-areolar complex, an area of bleeding was identified that was bright red and brisk. This site was controlled with cautery. Additional irrigation was performed carefully irrigating all quadrants of the breast, but no additional active bleeding was identified. The irrigant returned clear. Cauterized Silvercel was then placed over the parenchymal and dissection surfaces from the surgery. The open incision was now closed reapproximating in the same fashion prior to opening. Approximated deep dermis using inverted interrupted 4-0 Monocryl completing the superficial dermal and epidermal closure along the lateral aspect with subcuticular 3-0 Prolene and along the vertical aspect with running 5-0 Prolene. Surgical bermudez cleansed with saline dried postoperative bandages placed using sterile 1 inch paper tape, Kerlix squares secured with 3M Medipore tape and positioning size 2 mammary support. The patient was awakened from her anesthetic, extubated in the operating room and transferred to recovery room in good condition. Stable vital signs. ESTIMATED BLOOD LOSS: Was 200 mL including all clotted material. MMODL / IJN: [id number] /
[2020-03-04] MEDS: HYDROcodone/APAP 5-325MG 1 EACH TAB PO PRN ×2 (02:27→06:37)
[2020-03-04 04:49] LABS: Basophils % (A) 0 %; Eosinophils # (A) 0.1 k/uL (0-0.7); Eosinophils % (A) 1 %; HCT 31.4 % (34.0-46.0); HGB 10.2 gm/dL (11.4-16.0); Lymphocytes # (A) 2.3 k/uL (1.0-4.8); Lymphocytes % (A) 17 %; MCH 27.8 pg (25.0-35.0); MCHC 32.5 g/dL (31.0-37.0); MCV 85.5 fL (80.0-100.0); Mean Platelet Volume 6.7; Monocytes # (A) 0.5 k/uL (0-1.0); Monocytes % (A) 3 %; Neutrophils # (A) 10.2 k/uL (1.3-7.7); Neutrophils % (A) 77 %; Platelet Count 219 k/uL (150-450); RBC 3.67 m/uL (3.80-5.40); RDW 13.9 % (11.5-15.5); WBC 13.3 k/uL (3.8-10.6)
[2020-03-04] MEDS: DEXTROSE 5%-0.45% NACL 1,000 ML IV SCH ×2 (05:36→08:53)
[2020-03-04] MEDS: HEPARIN SODIUM,PORCINE 5,000 UNIT/ML 1 ML VIAL SQ SCH (08:53)
[2020-03-04 09:18] VITALS: BP 105/58; PULSE 68; RESP 21; TEMP 98.4
--- NOTE | 2020-03-04 10:08 | P.PN ---
Progress Note - Text Progress Note Date: 03/04/20 * Patient post op day 1 from excision right breast hamartoma with breast rconstruction and post-operative hematoma. Hematoma evacuated in OR 9-22 pm. Patient without complaints and feels well. * * VS stable, normal U/O. hgb10.2,plts 219 * bra/bandage c/d/i * + nipple sensation to lite touch. * breast soft with ecchymosis. * * Plan to dc home. Follow-up with me Monday, already scheduled. Follow up with Dr. Del Toro next week. Continue bra, do not remove. Sponge bath. No driving. Sleep on back only. * * Mike Jorge MD
== END 2020-03-04 10:45 | disposition home or self-care (01) ==
LOC: 6PED 17:25
PROVIDERS: ADMIT Surgery; ATTEND Surgery
DX: L76.32 Postprocedural hematoma of skin and subcutaneous tissue following other procedure (principal)
CPT/HCPCS: 10140; 85025 ×2; G0378 ×2; G0379; J2250; J1644 ×2; J2405; J0690; J3010; J0330; J2704

== ENCOUNTER → 2020-03-03 | Day surgery (SDC) | payer BC ==
[2020-02-28 17:09] VITALS: BMI 28.3
[~2020-03-03] MED LIST: DEXAMETHASONE SOD PHOSPHATE 10 MG/ML 1 ML VIAL IV ONE; FAMOTIDINE 20 MG/2 ML VIAL IVP ONE; GLYCOPYRROLATE 0.2 MG/ML 2 ML VIAL ONE; HEPARIN SODIUM,PORCINE 5,000 UNIT/ML 1 ML VIAL SQ ONE; HYDROcodone/APAP 5-325MG 1 EACH TAB PO PRN; HYDROmorphone 0.5 MG/0.5 ML SYRINGE IVP PRN; KETOROLAC 15 MG/ML 1 ML VIAL IVP ONE; LACTATED RINGERS 1,000 ML IV ONE; LACTATED RINGERS 1,000 ML IV SCH; LIDOCAINE (PF) 10 MG/ML 2 ML VIAL SQ ONE; LIDOCAINE 1% (10MG/ML) FOR IV START INTRADERMA ONE; LIDOCAINE 1% (10MG/ML) FOR IV START INTRADERMA PRN; LIDOCAINE 1% INJ 10MG/ML (20 ML MDV) ONE; METOCLOPRAMIDE 5 MG/ML 2 ML VIAL IVP ONE; METOCLOPRAMIDE 5 MG/ML 2 ML VIAL ONE; MIDAZOLAM 2 MG/2 ML VIAL IV PRN; MIDAZOLAM 2 MG/2 ML VIAL ONE; NALOXONE 0.4 MG/ML 1 ML VIAL IV PRN; ONDANSETRON 4 MG/2 ML VIAL IVP ONE; PROPOFOL 10 MG/ML 20 ML VIAL IV ONE; Pre Op ABX Message 1 EACH MISC MISCELLANE ONE; SODIUM CHLORIDE 0.45% 1,000 ML IV SCH; SUCCINYLCHOLINE CHLORIDE 100 MG/5 ML SYR IV ONE; fentaNYL (PF) 50 MCG/ML 2 ML AMP ONE
--- NOTE | 2020-03-03 09:19 | P.PN ---
Progress Note - Text Progress Note Date: 03/03/20 The patients mammograms were again reviewed with radiology this am. Dr. Darling did not feel that he could clearly delineate the hamartoma for localization. . After discussion with the patient and her mother they wish to proceed with excision being done for palpable mass in her breast. They understand that there could be positive margins and the lesion could recur and they wish to proceed. Also reviewed with pathology that the mass as a hamartoma will be breast tissue, and they concur. We will therefore proceed with surgical excision of palpable mass. The risk and benefits discussed and they wish to proceed.
--- NOTE | 2020-03-03 11:45 | P.OP ---
Date of Procedure: 03/03/20 Preoperative Diagnosis: Hamartoma right breast Postoperative Diagnosis: same Procedure(s) Performed: Excision of palpable hamartoma Anesthesia: HUDSON Surgeon: Chela Page Estimated Blood Loss (ml): 5 IV fluids (ml): 500 Pathology: other (Breast tissue/hamertoma) Indications for Procedure: Enlarging hamartoma right breast/asymmetry of breast Operative Findings: Dense breast tissue Description of Procedure: The patient is a 19-year-old white female who was noted to have a hamartoma in her right breast on a mammogram. The area was increasing in size in her breast was very asymmetric and symptomatic for the patient. Initially we hope to do radiographic bracketing of the hamartoma, however on the morning of surgery it was felt that it could not be well bracketed it has the area was palpable but we would do this without radiographic bracketing. The patient and her mother understood and wished to proceed. The patient was seen by Dr. aMri preoperatively from plastic surgery and a reduction incision was marked to utilize for resection of the palpable large mass in the right upper outer quadrant. The patient was brought to the operating room and both breasts were prepped and draped in a sterile fashion. Utilizing the marking placed in the preoperative area an incision was made. This was carried down through the skin and subcutaneous tissue to the breast parenchyma. The area of the lesion was felt to be compatible with radiographic changes of hamartoma, and was excised. This was 14 cm from medial to lateral and 9 cm from superior to inferior. The wound was evaluated for hemostasis which was obtained using the electrocautery device. Following this the reduction portion of the procedure was performed by Dr. Mari. The specimen was sent to pathology.
--- NOTE | 2020-03-03 11:51 | P.DS ---
Providers Attending physician: Chela Page Primary care physician: Stated None Plan - Discharge Summary Discharge Rx Participant: No New Discharge Prescriptions: No Action OXcarbazepine [Trileptal] 150 mg PO HS Discharge Medication List OXcarbazepine [Trileptal] 150 mg PO HS 02/13/20 [History] Follow up Appointment(s)/Referral(s): Chela Page MD [STAFF PHYSICIAN] - 1 Week Mike Jorge MD [STAFF PHYSICIAN] - 1 Week Activity/Diet/Wound Care/Special Instructions: Do not drive Wear bra at all times May not shower Sleep on back Discharge Disposition: HOME SELF-CARE
[2020-03-03] MEDS: MEPERIDINE 50 MG/ML SYRINGE IVP ONE ×2 (12:15→12:22)
[2020-03-03 12:52] VITALS: RESP 16
--- NOTE | 2020-03-03 12:58 | OP ---
OPERATIVE REPORT DATE OF SURGERY: 03/03/2020 SURGEON: Mike Jorge. BOILER TECHNICIAN: Dr. Page. PREOPERATIVE DIAGNOSES: 1. An acquired deformity, right breast secondary to tumor removal. 2. Acquired asymmetry of breast secondary to tumor removal from right breast. 3. Hamartoma, right breast. POSTOPERATIVE DIAGNOSES: 1. Acquired deformity of right breast, secondary to tumor removal. 2. Acquired asymmetry of breast secondary to tumor removal from right breast. 3. Hamartoma right breast. OPERATIVE PROCEDURES: 1. Local tissue rearrangement, right breast, 126 cm2. 2. Right breast reduction. OPERATIVE INDICATIONS: The patient is a 19-year-old female who was referred to my care by Dr. Page as the patient has a large hamartoma of the right breast diagnosed by exam, mammogram, and biopsy. The patient has significant asymmetry between her right and left breast due to the hamartoma and desires to optimize her result along with removal of her right breast tumor. The patient was counseled as to potential surgical reconstructive techniques that may be required pending the removal of the tumor. I also coordinated the surgery with Dr. Page who will assist me during my portion of the procedure. The patient understands potential common risks related to likely procedures include, but not limited to hematoma, seroma, wound healing problems, postoperative infection, asymmetry and the need for future surgery to optimize the result. She has requested I perform today's surgery. OPERATIVE PROCEDURE SUMMARY: The patient is seen in the preoperative area, markings made while standing. Potential procedures reviewed. All questions answered. She is transported to the operating room where she was placed in the supine position. Following induction general tracheal anesthesia, the patient is prepped and draped in usual fashion. I assisted Dr. Kelly Stallings with removal of the hamartoma. The lesion was quite large approximating 50% of the patient's breast volume, although asymmetrical to the lateral and upper lateral areas of the breast. This created a defect within the central glandular element that measured 14 x 9 cm. The hamartoma was not directly underneath the patient's nipple- areolar complex and the blood supply appeared to remain intact here. I now proceeded with the reconstructive surgery to optimize the patient's pressure shape and close the large wound and defect created by the tumor removal. Dr. Page assisted me. The initial incision made following the upper lateral transverse and upper lateral diagonal breast reduction incisions were temporary closed with running 5-0 Prolene. The breast was then distracted from the chest wall and tourniquet placed around the base. Even distraction force placed around the nipple-areolar complex and a 45 mm nipple-areolar guide used to draw circular template. A second quinault was drawn around the first in concentric fashion with 1 cm of tissue in between. The area in between skin was now de- epithelialized using a 10 blade scalpel. All tissue excised from the right breast was conserved for weights and sent to pathology separately from the patient's tumor. At the outer periphery of the exposed dermal tissue, incision was carried into the breast parenchyma using cauterization. The nipple areolar complex was oriented for later retrieval and evaluation with one staple at 12 o'clock and two at the 3 o'clock position. The lower transverse and vertical breast reduction incisions were made as planned using 10 blade scalpel make a full-thickness skin incision followed by cauterization maintain hemostasis. Skin subcutaneous tissue flaps were then elevated off the breast parenchyma where possible, which mostly involve the medial and superior areas laterally is where the tumor was in no remaining breast tissue was there due to the tumor removal. Once reaching the planned upper level, skin reduction points, dissection was taken in a deeper plane to separate the breast glandular tissue from skin subcutaneous tissue. The plane now included skin, subcutaneous tissue and breast parenchyma approximately 1 cm from the skin surface. The dissection was completed with scissors for this and use of cautery. Hemostasis maintained with cautery. Dissection continued into the breast gland with separate from skin attachments. Hemostasis maintained with cautery now. All tissue that remained appeared viable. The nipple- areolar complex was carefully inspected and demonstrated excellent viability as noted by bright red bleeding from the periphery dermal surface when rubbed. The nipple area complex had normal color and nipple erection to light touch stimulation. The patient had lost a large volume of breast tissue due to the tumor and direct glandular or excision of the central pedicle was not required. However, the central pedicle had a significant defect measuring 14 x 9 cm2 as stated previously. Local tissue rearrangement was now used to close this defect and to enhance the static result with the reduction procedure. The local tissue rearrangement was completed by insetting breast tissue over the area of defect using interrupted 3-0 Vicryl sutures, so as the central pedicle appeared to be even on all sides. With this completed, the nipple-areolar complex was reinspected and had the same excellent signs of viability noted above. The skin reduction incisions were now completed as marked using 10 blade scalpel to make a full-thickness skin incision, cauterization to completely excise the tissue along with some breast parenchyma where necessary. All the excised tissue from this portion of procedure was sent separately and prior to sending the tissue it was weighed. The excised tissue from this reconstructive procedures weighed 54 g. The weight of the tumor was 181 g. Inspection was made for hemostasis, which was excellent. The incision is now closed advancing the upper medial and upper lateral triangular skin flaps to the inferior midline using 1 interrupted 2-0 Vicryl suture. Vineet were used to temporarily close the skin. The patient was evaluated in the seated up position, although the right breast was somewhat smaller than the left breast now, the shape was correct. The nipple-areolar complex was now relocated positioning while the patient was seated up using a 42 mm nipple-areolar template. She was returned to supine position. This circular area marked for the new location for the right nipple areolar complex was now de-epithelialized following the quinault made, discarding the de-epithelialized skin, a cruciate incision was made through the de-epithelialized skin and the nipple areolar complex delivered in the location. The complex was carefully inspected and demonstrated excellent viability. The lower transverse incisions were now closed at deep dermal layer using inverted interrupted 4-0 Monocryl, removing vineet as closing and also the vertical incision. The nipple-areolar complex was now inset at the 12 o'clock, 3 o'clock, 6 o'clock, 9 o'clock position using inverted interrupted 4-0 Monocryl deep dermal sutures and then each of these locations bisected for the nipple- areolar complex using the same suture. The vertical portion of incision closure was completed at the superficial dermal and epidermal layer using a running 5-0 Prolene. The nipple-areolar complex inset was completed at superficial dermis and epidermal layer using a circumferential running 5-0 Prolene. The transverse incision superficial dermal and epidermal layers were now closed with subcuticular 3-0 Prolene. Surgical field was now cleansed with saline, dried and postoperative bandages placed using 1 sterile paper tape over suture repairs followed by Kerlix squares secured with 3 Medipore tape. While the patient was still asleep, a size 2 mammary support was positioned and the patient was then awakened from her anesthetic, extubated, and transferred to the recovery room in good condition, stable vital signs. ESTIMATED BLOOD LOSS: For this portion of the procedure was 50 mL. There were no complications. The final weight of tissue removed for the breast reduction from the right breast was 54 g. The final weight of the tissue removed from the right breast tumor was 181 g. MMESA / RASHEEDN: [id number] /
[2020-03-03 17:02] VITALS: BP 107/68; PULSE 62; TEMP 98.3
--- NOTE | 2020-03-03 17:05 | P.GSHP ---
History of Present Illness H&P Date: 03/03/20 Chief Complaint: oozing surgical site right breast Amada is a 19-year-old white female who is status post right breast lumpectomy for a hamartoma earlier today and a reduction mammoplasty. She did well in the recovery room and was discharged home. While at home she noticed some oozing from the surgical site in the lateral inferior aspect of the breast. She does not seem to have any hematoma at this site. She was told to come into the office she was seen in the office and pressure was applied. Despite pressure she continued to have some persistent mild oozing at the incision site, which did stop. Her case was discussed with Dr. Mari the plastic surgeon and after discussion it was decided that she should be admitted for observation. If the oozing were to restart he would consider operative intervention. Her vitals were stable in the office. - Constitutional Constitutional: Denies chills, Denies fever - EENT Eyes: denies blurred vision, denies pain - Breasts Breasts: bilateral: as per HPI - Cardiovascular Cardiovascular: Denies chest pain, Denies shortness of breath - Respiratory Comment: Asthma - Gastrointestinal Gastrointestinal: Denies abdominal pain, Denies diarrhea, Denies nausea, Denies vomiting - Genitourinary (Female) Genitourinary: Denies dysuria, Denies hematuria - Menstruation Menstruation: Reports period normal - Musculoskeletal Comment: Carpal tunnel - Integumentary Integumentary: Denies pruritus, Denies rash - Neurological Neurological: Reports numbness, Reports weakness - Psychiatric Comment: Anxiety and depression - Endocrine Endocrine: Denies fatigue, Denies weight change - Hematologic/Lymphatic Comment: No bleeding abnormalities Past Medical History Past Medical History: Asthma Additional Past Medical History / Comment(s): Rare vertigo. Rt breast lump currently History of Any Multi-Drug Resistant Organisms: MRSA Date of last positivie culture/infection: 2018 MDRO Source:: thigh Past Surgical History: No Surgical Hx Reported Additional Past Surgical History / Comment(s): benign right breast biopsy 11/01/19; Past Anesthesia/Blood Transfusion Reactions: No Reported Reaction Smoking Status: Current every day smoker - Past Family History Father Family Medical History: Cancer Additional Family Medical History / Comment(s): thyroid cancer Medications and Allergies Home Medications Medication Instructions Recorded Confirmed Type OXcarbazepine [Trileptal] 150 mg PO HS 02/13/20 02/28/20 History Allergies Allergy/AdvReac Type Severity Reaction Status Date / Time No Known Allergies Allergy Verified 02/28/20 16:30 Surgical - Exam Vital Signs Temp Pulse Resp BP Pulse Ox 98.3 F 59 L 16 111/56 97 03/03/20 07:37 03/03/20 07:37 03/03/20 07:37 03/03/20 07:37 03/03/20 07:37 - General well developed, well nourished, no distress - Eyes normal ocular movement - ENT no hearing loss, no congestion - Neck no masses, trachea midline - Respiratory normal respiratory effort, clear to auscultation - Cardiovascular Rhythm: regular Heart Sounds: normal: S1, S2 - Integumentary Incisions from recent surgery in the right breast are clean however there is a oozing from the lateral aspect of the right breast. After application of pressure this seems to have stopped There is no definite hematoma at this time - Neurologic no disoriented, no combative - Musculoskeletal normal gait, normal posture - Psychiatric oriented to time, oriented to person, oriented to place, speech is normal, memory intact Assessment and Plan Assessment: Impression: 1. Resection hamartoma right breast with a right breast mammoplasty earlier today who developed some oozing at the surgical site Plan: 1. Case was discussed with plastic surgery Dr. Mari, the patient will be admitted for observation is bleeding were to continue to consider return to the operating room Patient and her mother understand she is being admitted for observation.
== END | disposition home or self-care (01) ==
LOC: OR 06:43
PROVIDERS: ATTEND Surgery
DX: N64.89 Other specified disorders of breast (principal); J45.909 Unspecified asthma, uncomplicated; F32.9 Major depressive disorder, single episode, unspecified; F15.10 Other stimulant abuse, uncomplicated; F17.210 Nicotine dependence, cigarettes, uncomplicated
CPT/HCPCS: 19120; 14301; 14302 ×3; 19318; 81025; J2250; J1644; J1100; J2765; J2175; J0690; J2405; J2001; J3010; J1885; J0330; J2704; 88307

== ENCOUNTER → 2020-03-12 | Outpatient (CLI) | payer BC ==
[2020-03-12 16:40] VITALS: BP 101/68; PULSE 67; RESP 18; TEMP 98.5
--- NOTE | 2020-03-12 16:52 | P.PN ---
Progress Note - Text Progress Note Date: 03/12/20 Amada is a 19-year-old white female status post a right breast excision of hamartoma causing asymmetry and a mammoplasty. Postprocedure she developed a hematoma requiring evacuation in the operating room. At this time she is doing well without complaints. She is following with Dr. Mari. Physical exam: Lungs: Clear Heart: Regular rate and rhythm Right breast: Ecchymosis resolving No evidence of infection Impression: 1. Patient doing well status post mammoplasty and excision of right breast hamartoma tissue 2. Resolving ecchymosis following evacuation of hematoma Plan: 1. Continue to follow with Dr. Mari 2. Follow up in 1 month Cc: Dr. Tony Toney
== END | disposition home or self-care (01) ==
LOC: WWCWWP 16:09
PROVIDERS: ATTEND Surgery
DX: Z53.9 Procedure and treatment not carried out, unspecified reason (principal)

== ENCOUNTER → 2020-09-15 | Outpatient (CLI) | payer BC | END | disposition home or self-care (01) | LOC: LABWHC1 17:02 | PROVIDERS: ATTEND Emergency Medicine | DX: Z20.822 Contact with and (suspected) exposure to COVID-19 (principal) | CPT/HCPCS: U0003; C9803 ==

== ENCOUNTER 2020-11-19 20:37 | Emergency (ER) | payer BC, OTHER ==
[2020-11-19 23:08] VITALS: TEMP 97.5
[2020-11-19 23:33] LABS: Basophils # (A) 0.1 k/uL (0-0.2); Basophils % (A) 1 %; Eosinophils % (A) 11 %; HCT 36.6 % (34.0-46.0); HGB 12.7 gm/dL (11.4-16.0); Lymphocytes % (A) 32 %; MCHC 34.7 g/dL (31.0-37.0); MCV 83.6 fL (80.0-100.0); Mean Platelet Volume 6.7; Monocytes # (A) 0.3 k/uL (0-1.0); Monocytes % (A) 3 %; Neutrophils # (A) 4.8 k/uL (1.3-7.7); Neutrophils % (A) 51 %; Platelet Count 290 k/uL (150-450); RBC 4.37 m/uL (3.80-5.40); RDW 14.3 % (11.5-15.5); WBC 9.4 k/uL (3.8-10.6)
[2020-11-19 23:43] LABS: ALT 11 U/L (4-34); AST 21 U/L (14-36); African American GFR (CKD) >90 (>60 ml/min/1.73 sqM); Alkaline Phosphatase 97 U/L (38-126); Anion Gap 7 mmol/L; Blood Urea Nitrogen 13 mg/dL (7-17); Calcium 9.3 mg/dL (8.4-10.2); Carbon Dioxide 27 mmol/L (22-30); Chloride 106 mmol/L (98-107); Glucose 95 mg/dL (74-99); Non-African American GFR(CKD) >90 (>60 ml/min/1.73 sqM); Sodium 140 mmol/L (137-145); Total Bilirubin <0.1 mg/dL (0.2-1.3); Total Protein 6.4 g/dL (6.3-8.2)
[2020-11-19 23:44] LABS: INR 0.9 (<1.2); Partial Thromboplastin Time 24.8 sec (22.0-30.0)
[2020-11-20 00:03] LABS: Potassium 3.9 mmol/L (3.5-5.1)
[2020-11-20 01:02] LABS: Appearance,Urine Clear (Clear); Bilirubin,Urine Negative (Negative); Blood,Urine Moderate (Negative); Color,Urine Yellow; Glucose,Urine (UA) Negative (Negative); Hyaline Casts,Urine 1 /lpf (0-2); Ketones,Urine Negative (Negative); Leukocyte Esterase,Urine Negative (Negative); Mucus,Urine Occasional /hpf; Nitrite,Urine Negative (Negative); PH, Urine 5.5 (5.0-8.0); Protein,Urine Negative (Negative); RBC,Urine <1 /hpf (0-5); Squamous Epithelial Cell,Urine 1 /hpf (0-4); Urobilinogen,Urine <2.0 mg/dL (<2.0); WBC,Urine 1 /hpf (0-5)
[2020-11-20] MEDS: KETOROLAC 15 MG/ML 1 ML VIAL IVP STA (01:10)
[2020-11-20 01:12] VITALS: BP 108/78; PULSE 64; RESP 20
--- NOTE | 2020-11-20 01:30 | ED ---
General Adult HPI - General Chief complaint: Vaginal Bleeding Stated complaint: bodyaches,fatigue Source: patient Mode of arrival: ambulatory - History of Present Illness Initial comments: 20 year-old female patient presents to the emergency department today for evaluation of prolonged menstrual bleeding. States she has been having bleeding for the last 42 days. States that she has taken the plan B pill 10 times over the last five months and believes that may be contributing. States that she took it last about a month ago and that made the bleeding significantly worse. States she does pass clots at times, states the largest was "golf ball size". She states she does have lower abdominal and low back cramping. States more recently she has been feeling fatigued and weak. States she slept all through the day yesterday. She denies taking any tests at home. Not currently taking control. No previous pregnancies. Patient denies any recent rash, fever, chills, cough, shortness of breath, chest pain, nausea, vomiting, diarrhea, constipation, back pain, numbness, tingling, hematuria, dysuria, urinary urgency, urinary frequency, headache, visual changes, or any other complaints. - Related Data Home Medications Medication Instructions Recorded Confirmed OXcarbazepine [Trileptal] 150 mg PO HS 02/13/20 03/12/20 Allergies Allergy/AdvReac Type Severity Reaction Status Date / Time No Known Allergies Allergy Verified 11/19/20 21:35 Review of Systems ROS Statement: Those systems with pertinent positive or pertinent negative responses have been documented in the HPI. ROS Other: All systems not noted in ROS Statement are negative. Past Medical History Past Medical History: Asthma Additional Past Medical History / Comment(s): Rare vertigo. Rt breast lump currently History of Any Multi-Drug Resistant Organisms: MRSA Date of last positivie culture/infection: 2017 MDRO Source:: thigh Past Surgical History: No Surgical Hx Reported Additional Past Surgical History / Comment(s): benign right breast biopsy 11/01/19; Past Anesthesia/Blood Transfusion Reactions: No Reported Reaction Past Psychological History: Anxiety, Bipolar, Depression Smoking Status: Current every day smoker Past Alcohol Use History: None Reported Past Drug Use History: Marijuana - Past Family History Father Additional Family Medical History / Comment(s): lymphoma Mother Family Medical History: No Reported History General Exam General appearance: alert, in no apparent distress, other (This is a well- developed, well-nourished adult female patient in no acute distress. Vital signs upon presentation temperature 98.1F, pulse 61, respirations 18, blood pressure 106/70, pulse ox 98% on room air.) Eye exam: Present: normal appearance, PERRL, EOMI. Absent: scleral icterus, conjunctival injection, periorbital swelling ENT exam: Present: normal exam, normal oropharynx, mucous membranes moist Respiratory exam: Present: normal lung sounds bilaterally. Absent: respiratory distress, wheezes, rales, rhonchi, stridor Cardiovascular Exam: Present: regular rate, normal rhythm, normal heart sounds. Absent: systolic murmur, diastolic murmur, rubs, gallop, clicks GI/Abdominal exam: Present: soft, normal bowel sounds. Absent: distended, tenderness, guarding, rebound, rigid Neurological exam: Present: alert, oriented X3, CN II-XII intact Psychiatric exam: Present: normal affect, normal mood Skin exam: Present: warm, dry, intact, normal color. Absent: rash Course Vital Signs 11/19/20 11/19/20 11/20/20 21:32 22:58 01:11 Temperature 98.1 F 97.5 F L Pulse Rate 61 69 64 Respiratory 18 18 20 Rate Blood Pressure 106/70 102/56 108/78 O2 Sat by Pulse 98 96 96 Oximetry Medical Decision Making - Medical Decision Making 20-year-old female patient presented to the emergency department today for eval uation of vaginal bleeding 42 days. Patient did admit to taking a Plan B pill 10 times over the last 5 months. States the last one was approximately a month ago which made her bleeding worse. Physical examination did reveal soft nontender abdomen. No CVA tenderness. She is afebrile, vital signs. Labs reviewed and were unremarkable. She is not . Urine shows no sign of infection. Ultrasound of the pelvis was obtained and showed no abnormalities. Patient's vital signs are within normal ranges. I did discuss findings and results with the patient. Did recommend follow-up to [facility]. States she does not have insurance at this time and states she will not be able to follow-up. [facility] Recommended she call to see if she qualifies for medicaid. I did offer to start her on control to attempt to regulate her periods, she declined. Return parameters were discussed in detail. Patient refused discharge vital signs and left unhappy with her care. Case discussed with my attending Dr. Aguirre. - Lab Data Result diagrams: 11/19/20 23:23 11/19/20 23:23 Lab Results 11/19/20 11/19/20 11/19/20 Range/Units 23:23 23:23 23:23 WBC 9.4 (3.8-10.6) k/uL RBC 4.37 (3.80-5.40) m/uL Hgb 12.7 (11.4-16.0) gm/dL Hct 36.6 (34.0-46.0) % MCV 83.6 (80.0-100.0) fL MCH 29.0 (25.0-35.0) pg MCHC 34.7 (31.0-37.0) g/dL RDW 14.3 (11.5-15.5) % Plt Count 290 (150-450) k/uL MPV 6.7 Neutrophils % 51 % Lymphocytes % 32 % Monocytes % 3 % Eosinophils % 11 % Basophils % 1 % Neutrophils # 4.8 (1.3-7.7) k/uL Lymphocytes # 3.0 (1.0-4.8) k/uL Monocytes # 0.3 (0-1.0) k/uL Eosinophils # 1.0 H (0-0.7) k/uL Basophils # 0.1 (0-0.2) k/uL PT 10.0 (9.0-12.0) sec INR 0.9 (<1.2) APTT 24.8 (22.0-30.0) sec Sodium 140 (137-145) mmol/L Potassium 3.9 (3.5-5.1) mmol/L Chloride 106 (98-107) mmol/L Carbon Dioxide 27 (22-30) mmol/L Anion Gap 7 mmol/L BUN 13 (7-17) mg/dL Creatinine 0.80 (0.52-1.04) mg/dL Est GFR (CKD-EPI)AfAm >90 (>60 ml/min/1.73 sqM) Est GFR (CKD-EPI)NonAf >90 (>60 ml/min/1.73 sqM) Glucose 95 (74-99) mg/dL Calcium 9.3 (8.4-10.2) mg/dL Total Bilirubin <0.1 L (0.2-1.3) mg/dL AST 21 (14-36) U/L ALT 11 (4-34) U/L Alkaline Phosphatase 97 (38-126) U/L Total Protein 6.4 (6.3-8.2) g/dL Albumin 4.0 (3.5-5.0) g/dL Urine Color Urine Appearance (Clear) Urine pH (5.0-8.0) Ur Specific Pony (1.001-1.035) Urine Protein (Negative) Urine Glucose (UA) (Negative) Urine Ketones (Negative) Urine Blood (Negative) Urine Nitrite (Negative) Urine Bilirubin (Negative) Urine Urobilinogen (<2.0) mg/dL Ur Leukocyte Esterase (Negative) Urine RBC (0-5) /hpf Urine WBC (0-5) /hpf Ur Squamous Epith Cells (0-4) /hpf Hyaline Casts (0-2) /lpf Urine Mucus (None) /hpf Urine HCG, Qual (Not Detectd) 11/20/20 11/20/20 Range/Units 00:41 00:41 WBC (3.8-10.6) k/uL RBC (3.80-5.40) m/uL Hgb (11.4-16.0) gm/dL Hct (34.0-46.0) % MCV (80.0-100.0) fL MCH (25.0-35.0) pg MCHC (31.0-37.0) g/dL RDW (11.5-15.5) % Plt Count (150-450) k/uL MPV Neutrophils % % Lymphocytes % % Monocytes % % Eosinophils % % Basophils % % Neutrophils # (1.3-7.7) k/uL Lymphocytes # (1.0-4.8) k/uL Monocytes # (0-1.0) k/uL Eosinophils # (0-0.7) k/uL Basophils # (0-0.2) k/uL PT (9.0-12.0) sec INR (<1.2) APTT (22.0-30.0) sec Sodium (137-145) mmol/L Potassium (3.5-5.1) mmol/L Chloride (98-107) mmol/L Carbon Dioxide (22-30) mmol/L Anion Gap mmol/L BUN (7-17) mg/dL Creatinine (0.52-1.04) mg/dL Est GFR (CKD-EPI)AfAm (>60 ml/min/1.73 sqM) Est GFR (CKD-EPI)NonAf (>60 ml/min/1.73 sqM) Glucose (74-99) mg/dL Calcium (8.4-10.2) mg/dL Total Bilirubin (0.2-1.3) mg/dL AST (14-36) U/L ALT (4-34) U/L Alkaline Phosphatase (38-126) U/L Total Protein (6.3-8.2) g/dL Albumin (3.5-5.0) g/dL Urine Color Yellow Urine Appearance Clear (Clear) Urine pH 5.5 (5.0-8.0) Ur Specific Pony 1.030 (1.001-1.035) Urine Protein Negative (Negative) Urine Glucose (UA) Negative (Negative) Urine Ketones Negative (Negative) Urine Blood Moderate H (Negative) Urine Nitrite Negative (Negative) Urine Bilirubin Negative (Negative) Urine Urobilinogen <2.0 (<2.0) mg/dL Ur Leukocyte Esterase Negative (Negative) Urine RBC <1 (0-5) /hpf Urine WBC 1 (0-5) /hpf Ur Squamous Epith Cells 1 (0-4) /hpf Hyaline Casts 1 (0-2) /lpf Urine Mucus Occasional H (None) /hpf Urine HCG, Qual Not Detected (Not Detectd) - Radiology Data Radiology results: report reviewed, image reviewed Transvaginal ultrasound was obtained. Impression by Dr. Reyna shows normal pelvic ultrasound. Disposition Clinical Impression: Dysfunctional uterine bleeding Disposition: HOME SELF-CARE Condition: Good Instructions (If sedation given, give patient instructions): Dysfunctional Uterine Bleeding (ED) Additional Instructions: Follow up with gynecology for further evaluation as soon as possible. You can follow up with [facility] and possibly get a referral to gynecology. Consider calling to see if you qualify for medicaid. I advise against taking any more Plan B until your cycle is regulated. Return to the emergency department for any new, worsening, or concerning symptoms. Is patient prescribed a controlled substance at d/c from ED?: No Referrals: Tony Toney MD [Primary Care Provider] - 1-2 days Avelina Hook MD [STAFF PHYSICIAN] - 1-2 days [facility] Carol lowery [NON-STAFF] - 1-2 days Time of Disposition: 02:00
--- NOTE | 2020-11-20 01:51 | US ---
EXAM: US Pelvis Transabdominal and Transvaginal, Complete CLINICAL HISTORY: ITS.REASON US Reason: Heavy bleeding; pelvic pain TECHNIQUE: Real-time complete transabdominal and transvaginal pelvic ultrasound with image documentation. Transvaginal imaging was used for better evaluation of the endometrium and adnexa. COMPARISON: No relevant prior studies available. FINDINGS: Uterus/cervix: 6.9 x 5.1 x 3.9 cm.. Normal endometrial stripe thickness at 3 mm. No myometrial mass. Right ovary: 4.4 x 2.8 x 2.6 cm. No mass. Normal blood flow. Left ovary: 4.0 x 2.5 x 2.6 cm. No mass. Normal blood flow. Free fluid: Small amount of free fluid IMPRESSION: Normal pelvic ultrasound.
== END 2020-11-20 02:22 | disposition home or self-care (01) ==
LOC: EC 20:37
DX: N93.8 Other specified abnormal uterine and vaginal bleeding (principal); J45.909 Unspecified asthma, uncomplicated; F32.9 Major depressive disorder, single episode, unspecified; F17.200 Nicotine dependence, unspecified, uncomplicated; F12.90 Cannabis use, unspecified, uncomplicated
CPT/HCPCS: 36415; 80053; 85025; 85610; 85730; 81001; 81025; 93975; 76830; 99284; 96374; J1885

== ENCOUNTER → 2021-05-28 | Outpatient (CLI) | payer BC ==
[2021-05-28 14:49] VITALS: BP 113/78; PULSE 77; RESP 16; TEMP 97.4
--- NOTE | 2021-05-28 14:50 | P.PN ---
Subjective Progress Note Date: 05/28/21 Principal diagnosis: Reduction right breast/history of hamartoma hamartoma of the right breast Amada 21-year-old white female status post right breast reduction and excision of a hamartoma on 920 220. Following the procedure she developed a hematoma and required return to the operating room. At this time the patient is doing well. Since the time of surgery for some fullness in the lateral aspect of the right breast but otherwise no lumps masses or nodules of concern. She is not complaining of any nipple discharge. She is not complaining of any pain in her breast. She has not had any recent trauma or infection in the breast. Caffeine: 1 cup of coffee per day Nicotine: vapes/ 1 vape /2 weeks Chocolate: occasional BCP: none no hormone suppliments Family History: father: lymphoma paternal aunt: lymphoma paternal grandfather: colon cancer maternal grandfather: pancreatic cancer Hormonal History: menarche: 12 G0 periods regular BCP: none hormones: none Surgical history: right breast reduction and removal of hamartoma Medical history: asthma MRSA in thigh and calf on the right Social History: smoke: vapes alcohol: none drugs: Marijuana daily - Constitutional Constitutional: Denies chills, Denies fever - EENT Eyes: denies blurred vision, denies pain Ears: deny: decreased hearing, tinnitus Ears, nose, mouth and throat: Denies headache, Denies sore throat - Breasts Breasts: bilateral: as per HPI - Cardiovascular Cardiovascular: Denies chest pain, Denies shortness of breath - Respiratory Comment: asthma Respiratory: Denies cough - Gastrointestinal Gastrointestinal: Denies abdominal pain, Denies diarrhea, Denies nausea, Denies vomiting - Menstruation Menstruation: Reports period normal - Musculoskeletal Comment: carpal tunnel Musculoskeletal: Denies myalgias - Integumentary Integumentary: Denies pruritus, Denies rash - Neurological Neurological: Reports numbness, Reports weakness - Psychiatric Psychiatric: Reports anxiety, Reports depression - Endocrine Endocrine: Denies fatigue, Denies weight change - Hematologic/Lymphatic Comment: none Objective - Constitutional General appearance: Present: cooperative - EENT Eyes: Present: EOMI ENT: Present: hearing grossly normal - Neck Neck: Present: normal ROM - Respiratory Respiratory: bilateral: CTA - Cardiovascular Rhythm: regular Heart sounds: normal: S1, S2 - Gastrointestinal General gastrointestinal: Present: soft - Integumentary Integumentary: Present: normal turgor - Musculoskeletal Musculoskeletal: Present: gait normal - Psychiatric Psychiatric: Present: A&O x's 3, appropriate affect, intact judgment & insight - Additional findings Additional findings: reast Exam: BRA: 38C inspection: Mild asymmetry of the breast patient status post right breast reduction for a hamartoma; was a 38DDD prior to surgery palpation: right breast: Multi-positional exam fibrocystic changes, postop changes, no discrete dominant masses or nodules of concern, at the 9 o'clock position patient points out some nodularity which I believe is breast tissue Right axilla: No adenopathy of concern Left breast: Multi-positional exam fibrocystic changes no dominant masses or nodules of concern Left axilla: No adenopathy of concern Assessment and Plan Assessment: Impression: Fibrocystic breast changes Asymmetry related to prior reduction mammoplasty secondary to hamartoma of the right breast Slight nodularity lateral aspect of the right breast Plan: Bilateral breast ultrasound particular attention to the area of nodularity which is believed to be lobulated breast tissue or scar tissue Follow up after ultrasound Cc: Dr. Tony Toney
== END ==
LOC: WWCWWP 14:05
PROVIDERS: ATTEND Surgery
DX: L76.32 Postprocedural hematoma of skin and subcutaneous tissue following other procedure (principal); N60.11 Diffuse cystic mastopathy of right breast; J45.909 Unspecified asthma, uncomplicated; F17.200 Nicotine dependence, unspecified, uncomplicated; Z98.82 Breast implant status

== ENCOUNTER → 2021-07-01 | Outpatient (CLI) | payer OTHER ==
--- NOTE | 2021-07-01 11:30 | USB ---
Reason for exam: clinical finding. History: Patient is nulliparous. Indicated problem(s): palpable abnormality in the right breast. Physical Findings: Nurse Summary: Patient complains of some discomfort right breast surgical site since surgery in 2019, 0.5cm hard, movable lump right breast at 10 o'clock (nurse TM). US Breast BILAT Technologist: Linda Florence Right complete breast ultrasound includes all four quadrants, the retroareolar region and axilla. Finding demonstrates a 1.2 x 0.4 x 0.6cm oval lymph node at 10 o'clock BB< 3.5mm cortex. Left complete breast ultrasound includes all four quadrants, the retroareolar region and axilla. Finding demonstrates no cystic or solid lesion seen. These results were verbally communicated with the patient and result sheet given to the patient on 07/01/21. ASSESSMENT: Probably benign, BI-RAD 3 RECOMMENDATION: Ultrasound of the right breast in 6 months. Manage patient on a clinical basis.
== END | disposition home or self-care (01) ==
LOC: RADUSWWP 09:47
PROVIDERS: ATTEND Surgery
DX: R92.8 Other abnormal and inconclusive findings on diagnostic imaging of breast (principal)